=== PATIENT | female | born 1990 | race African-American/Black ===

== ENCOUNTER 2019-02-22 08:46 | Emergency (ER) | payer OTHER ==
[2019-02-22 09:09] VITALS: BMI 60.1
--- NOTE | 2019-02-22 09:49 | PDOC ---
Attending Attestation - Resident Resident Name: Roderick Greenfield - ED Attending Attestation I have performed the following: I have examined & evaluated the patient, The case was reviewed & discussed with the resident, I agree w/resident's findings & plan, Exceptions are as noted - HPI HPI: 02/22/19 12:03 Ms. Morris is a 28 yo F who presents to the ER with a complaint of a headache Pt reports that she is approximately 11 weeks - She reports that she awoke in her usual state of health 5 days ago That evening, she noted a headache She has a h/o headaches and this one feels similar to prior headaches The main difference is this headache has lasted for 5 days She typically takes Aleeve but has not been able to take that She took tylenol with no relief Headache is described as tension/squeezing, located through out the head, rated currently 7/10 Associated with photophobia Not associated with nausea She has had morning sickness but has been able to tolerate po No vaginal bleeding No abdominal pain She denies head trauma She denies neck pain - Physicial Exam PE: 02/22/19 12:07 GENERAL: The patient is in no acute distress. HEAD: Normal EYES: PERRLA, EOMI, sclera anicteric, conjunctiva clear. ENT: Ears normal, nares patent, oropharynx clear without exudates. Moist mucous membranes. NECK: Normal range of motion, supple LUNGS: Breath sounds equal, clear to auscultation bilaterally. No wheezes, and no crackles. HEART:Regular rate and rhythm, normal S1 and S2 without murmur, rub or gallop. ABDOMEN: Soft, mild lower abdominal tenderness EXTREMITIES: Normal range of motion, no edema. NEUROLOGICAL: Cranial nerves II through XII grossly intact. Normal speech. No focal neurological deficits. MUSCULOSKELETAL: Back non-tender to palpation, no CVA tenderness SKIN: Warm, Dry, normal turgor, no rashes or lesions noted. - Medical Decision Making DD: Tension headache, migraine headache, dehydration Doubt Intracranial mass, Dural sinus thrombosis as pt has no neurologic findings 02/22/19 12:03 Laboratory Tests 02/22/19 02/22/19 02/22/19 10:43 10:43 10:43 WBC 8.4 Hgb 12.6 Hct 36.3 Plt Count 226 BUN 9.1 Creatinine 0.6 Beta HCG, Quant 97648.1 Urine Blood Urine Nitrite Ur Leukocyte Esterase 02/22/19 10:52 WBC Hgb Hct Plt Count BUN Creatinine Beta HCG, Quant Urine Blood Trace-intact Urine Nitrite Negative Ur Leukocyte Esterase 3+ H 02/22/19 12:07 Pending US 02/22/19 13:08 U/S: single live IUP 16 weeks, 2 days, FHR: 160 bpm, nml amniotic fluid, anterior placenta Will re assess 02/22/19 14:10 Pt re assessed Pt headache completely resolved She feels well now Tolerating po Pt given OB for follow up Clinical impression: Headache, initial presentation 11 week , initial presentation Morning sickness, initial presentation
[2019-02-22] MEDS ORDERED: SODIUM CHLORIDE 1,000 ML IV STA (10:10)
[2019-02-22] MEDS ORDERED: ACETAMINOPHEN 1000 MG/100 ML VIAL (NON FORMULARY) IVPB ONE (10:44)
[2019-02-22] MEDS ORDERED: METOCLOPRAMIDE HCL INJECTION 10 MG/2 ML VIAL IVPUSH ONE (10:44)
--- NOTE | 2019-02-22 10:51 | PDOC ---
History of Present Illness - General Chief Complaint: Headache Stated Complaint: 11 WKS PREG / HEADACHE Time Seen by Provider: 02/22/19 09:38 History Source: Patient Exam Limitations: No Limitations - History of Present Illness Initial Comments: 28 yo F approximately 11 weeks GA (has not had her first OBGYN appointment ) presents to the emergency department with headache consistent with her previous migraines for 5 days. Per the patient, the headache is located in the left temporal region with radiation to the occipital region. Gradual in onset. Throbbing in nature. Denies the following: visual disturbance, FND, nausea, vomiting, chest pain, SOB, dizziness, lightheadedness, and AMS. She used tylenol yesterday and it did not emanuel her symptoms. Denies recent head trauma. Denies the following: fever, chills, abdominal pain, dysuria, hematuria, diarrhea, and hematochezia. Meds: Currently not on pre vitamins. Past History - Past Medical History Allergies/Adverse Reactions: Allergies Allergy/AdvReac Type Severity Reaction Status Date / Time No Known Allergies Allergy Verified 08/01/15 12:37 Home Medications: Ambulatory Orders Cephalexin Monohydrate [Keflex -] 500 mg PO BID #14 capsule 02/22/19 Pnv No.95/Ferrous Fum/Folic AC [ Vitamin Tablet] 1 each PO DAILY #30 tablet 02/22/19 COPD: No - Reproductive History Is Patient Now?: Yes (#): 1 Para: 0 - Immunization History Immunization Up to Date: No - Suicide/Smoking/Psychosocial Hx Smoking History: Never smoked Have you smoked in the past 12 months: No Information on smoking cessation initiated: No Hx Alcohol Use: No Drug/Substance Use Hx: No Substance Use Type: None Review of Systems - Review of Systems Able to Perform ROS?: Yes Is the patient limited Nepali proficient: No Constitutional: No: Chills, Diaphoresis, Fever, Weakness HEENTM: No: Eye Pain, Blurred Vision, Recent change in vision, Ear Pain, Nose Pain, Throat Pain, Mouth Pain Respiratory: No: Cough, Shortness of Breath, Hemoptysis Cardiac (ROS): No: Chest Pain, Lightheadedness, Palpitations, Syncope, Chest Tightness ABD/GI: No: Constipated, Diarrhea, Nausea, Rectal Bleeding, Vomiting, Tarry Stools : No: Burning, Dysuria, Hematuria, Incontinence Musculoskeletal: No: Back Pain, Joint Pain, Neck Pain Integumentary: No: Bruising, Erythema, Rash Neurological: Yes: Headache. No: Numbness, Tingling, Tremors Psychiatric: No: Change in Appetite Endocrine: No: Unexplained Weight Gain Hematologic/Lymphatic: No: Anemia *Physical Exam - Vital Signs Last Vital Signs Temp Pulse Resp BP Pulse Ox 98.6 F 78 18 100/62 100 02/22/19 08:57 02/22/19 08:57 02/22/19 08:57 02/22/19 08:57 02/22/19 08:57 - Physical Exam General Appearance: Yes: Nourished, Appropriately Dressed. No: Apparent Distress, Intoxicated HEENT: positive: EOMI, NABIL, Normal Voice, Symmetrical, Pharynx Normal, Hearing Grossly Normal. negative: Pale Conjunctivae, Scleral Icterus (R), Scleral Icterus (L), Muffled/Hoarse voice, Pharyngeal Erythema, Tonsillar Exudate, Tonsillar Erythema, Nasal Congestion, Rhinorrhea, Sinus Tenderness, Excessive drooling Neck: positive: Trachea midline, Supple. negative: Tender, Lymphadenopathy (R) , Lymphadenopathy (L) Respiratory/Chest: positive: Lungs Clear, Normal Breath Sounds. negative: Chest Tender, Respiratory Distress, Accessory Muscle Use, Crackles, Rales, Rhonchi, Stridor, Wheezing Cardiovascular: positive: Regular Rhythm, Regular Rate, S1, S2. negative: Systolic Murmur Gastrointestinal/Abdominal: positive: Normal Bowel Sounds, Tender (mild bilateral lower abdominal tenderness), Flat, Soft, Other (uterus palpable in the midline lower abdomen). negative: Distended Lymphatic: negative: Adenopathy Musculoskeletal: positive: Normal Inspection. negative: CVA Tenderness, Vertebral Tenderness Extremity: positive: Normal Capillary Refill, Normal Inspection, Normal Range of Motion. negative: Tender, Swelling, Calf Tenderness Integumentary: positive: Normal Color, Dry, Warm. negative: Swelling, Ecchymosis Neurologic: positive: sausage linker II-XII NML intact, Fully Oriented, Alert, Normal Mood/ Affect, Normal Response, Motor Strength 5/5 ED Treatment Course - LABORATORY CBC & Chemistry Diagram: 02/22/19 10:43 02/22/19 10:43 Medical Decision Making - Medical Decision Making 28 yo F approximately 11 weeks GA (has not had her first OBGYN appointment ) presents to the emergency department with headache consistent with her previous migraines for 5 days. Initial vitals; Initial Vital Signs Temp Pulse Resp BP Pulse Ox 98.6 F 78 18 100/62 100 02/22/19 08:57 02/22/19 08:57 02/22/19 08:57 02/22/19 08:57 02/22/19 08:57 Work up: ddx: headache 2/2 migraines. will assess status Laboratory Tests 02/22/19 02/22/19 02/22/19 10:43 10:43 10:43 WBC 8.4 RBC 3.94 Hgb 12.6 Hct 36.3 MCV 92.2 MCH 32.1 MCHC 34.9 RDW 14.4 Plt Count 226 MPV 7.9 Absolute Neuts (auto) 6.2 Neutrophils % 73.1 Lymphocytes % 18.5 D Monocytes % 6.8 Eosinophils % 1.0 D Basophils % 0.6 Nucleated RBC % 0 Sodium 140 Potassium 4.5 Chloride 106 Carbon Dioxide 27 Anion Gap 7 L BUN 9.1 Creatinine 0.6 Est GFR (CKD-EPI)AfAm 145.80 Est GFR (CKD-EPI)NonAf 125.80 Random Glucose 71 L Calcium 9.4 Total Bilirubin 0.2 AST 18 ALT 12 L Alkaline Phosphatase 55 Total Protein 6.7 Albumin 3.2 L Beta HCG, Quant 34663.1 Urine Color Urine Appearance Urine pH Ur Specific Rosalie Urine Protein Urine Glucose (UA) Urine Ketones Urine Blood Urine Nitrite Urine Bilirubin Urine Urobilinogen Ur Leukocyte Esterase Urine WBC (Auto) Urine RBC (Auto) Urine Casts (Auto) U Epithel Cells (Auto) Urine Crystals (Auto) Urine Bacteria (Auto) 02/22/19 10:52 WBC RBC Hgb Hct MCV MCH MCHC RDW Plt Count MPV Absolute Neuts (auto) Neutrophils % Lymphocytes % Monocytes % Eosinophils % Basophils % Nucleated RBC % Sodium Potassium Chloride Carbon Dioxide Anion Gap BUN Creatinine Est GFR (CKD-EPI)AfAm Est GFR (CKD-EPI)NonAf Random Glucose Calcium Total Bilirubin AST ALT Alkaline Phosphatase Total Protein Albumin Beta HCG, Quant Urine Color Yellow Urine Appearance Clear Urine pH 7.0 Ur Specific Rosalie 1.015 Urine Protein Negative Urine Glucose (UA) Negative Urine Ketones Negative Urine Blood Trace-intact Urine Nitrite Negative Urine Bilirubin Negative Urine Urobilinogen 0.2 Ur Leukocyte Esterase 3+ H Urine WBC (Auto) 47.8 Urine RBC (Auto) 0.7 Urine Casts (Auto) 5.63 U Epithel Cells (Auto) 1.8 Urine Crystals (Auto) Few Urine Bacteria (Auto) 271.0 UA positive for UTI. patient's TVUS was within normal limits showing approximately 16 week GA fetus SIUP with appropriate FHR. Will prescribe keflex , pre vitamins, and follow up with PMD. Patient's headache resolved with reglan, fluids, and tylenol. Dispo: Discharge *DC/Admit/Observation/Transfer Diagnosis at time of Disposition: UTI (urinary tract infection), Headache, - Discharge Dispostion Disposition: HOME Condition at time of disposition: Stable - Prescriptions Prescriptions: Cephalexin Monohydrate [Keflex -] 500 mg PO BID #14 capsule Pnv No.95/Ferrous Fum/Folic AC [ Vitamin Tablet] 1 each PO DAILY #30 tablet - Referrals Referrals: ON STAFF,NOT [Primary Care Provider] - [facility] [place] [Provider Group] Annalise Escalante MD [Staff Physician] - - Patient Instructions Printed Discharge Instructions: Diet, DI for Urinary Tract Infection (UTI), DI for -- Discomforts and Remedies Additional Instructions: You were seen in the emergency department for the evaluation of your headache. You were found to have a UTI. Please take the antibiotics as prescribed. Please follow up with an OBGYN physician within 1 week after discharge. Please take your medications as prescribed. Please return to the emergency department if you have worsening symptoms or new concerning symptoms. Thank you. - Post Discharge Activity
[2019-02-22 10:55] LABS: BASO % 0.6 % (0-2.0); HEMATOCRIT 36.3 % (32.4-45.2); HEMOGLOBIN 12.6 GM/dL (10.7-15.3); LYMPH % 18.5 % (8-40); MCH 32.1 pg (25.7-33.7); MCHC 34.9 g/dl (32.0-36.0); MEAN CELL VOLUME 92.2 fl (80-96); MEAN PLT VOLUME 7.9 fl (7.5-11.1); MONO % 6.8 % (3.8-10.2); NEUT % 73.1 % (42.8-82.8); PLATELET COUNT 226 K/MM3 (134-434); RBC 3.94 M/mm3 (3.60-5.2); RDW 14.4 % (11.6-15.6); WHITE BLOOD COUNT 8.4 K/mm3 (4.0-10.0)
[2019-02-22] MEDS ORDERED: METOCLOPRAMIDE HCL INJECTION 10 MG/2 ML VIAL ONE (10:55)
[2019-02-22] MEDS ORDERED: ACETAMINOPHEN INJECTION 100 ML IVPB ONE (10:55)
[2019-02-22 11:54] LABS: URINE APPEARANCE Clear; URINE BILIRUBIN Negative (NEGATIVE); URINE COLOR Yellow; URINE GLUCOSE (UA) Negative (NEGATIVE); URINE KETONE Negative (NEGATIVE); URINE LEUK ESTERASE 3+ (NEGATIVE); URINE NITRITE Negative (NEGATIVE); URINE PROTEIN Negative (NEGATIVE); URINE UROBILINOGEN 0.2 mg/dL (0.2-1.0)
[2019-02-22 11:56] LABS: ALBUMIN 3.2 g/dl (3.4-5.0); BILIRUBIN,TOTAL 0.2 mg/dL (0.2-1); BLOOD UREA NITROGEN 9.1 mg/dL (7-18); CALCIUM 9.4 mg/dL (8.5-10.1); CREATININE 0.6 mg/dL (0.55-1.3); POTASSIUM 4.5 mmol/L (3.5-5.1); TOT PROT 6.7 g/dl (6.4-8.2)
[2019-02-22 13:18] LABS: EPI CELLS 1.8 /HPF (0-5/HPF); HYALINE CASTS 5.63 /lpf (0-8); URINE RBC 0.7 /hpf (0-4); URINE WBC 47.8 /hpf (0-5)
[2019-02-22 13:19] LABS: URINE CRYSTALS FEW /hpf
[2019-02-22 14:01] VITALS: BP 113/70; PULSE 65; TEMP 98.1
== END 2019-02-22 14:00 | disposition home or self-care (01) ==
LOC: JER 08:46
PROC: 3E033NZ Introduction of Analgesics, Hypnotics, Sedatives into Peripheral Vein, Percutaneous Approach (ICD-10-PCS; principal; 2019-02-22)
PROC: 3E033GC Introduction of Other Therapeutic Substance into Peripheral Vein, Percutaneous Approach (ICD-10-PCS; 2019-02-22)
PROC: 3E0337Z Introduction of Electrolytic and Water Balance Substance into Peripheral Vein, Percutaneous Approach (ICD-10-PCS; 2019-02-22)
DX: O26.891 Other specified pregnancy related conditions, first trimester (principal); Z3A.11 11 weeks gestation of pregnancy; N39.0 Urinary tract infection, site not specified; R51 Headache
CPT/HCPCS: 36415; 76815-TC; 80053; 81003; 84702; 85025; 87086; 96361; 96374; 96375; 99283-25; J0131; J7030

== ENCOUNTER 2019-08-12 07:05 | Inpatient (IN) | payer OTHER ==
--- NOTE | 2019-08-12 07:39 | PN ---
Delivery - Delivery Vaginal Delivery: Spontaneous Type of Anesthesia: None Episiotomy/Laceration: None (Extramural delivery of a healthy baby boy. Retained placenta. Minimal bleeding.) Delivery, Single - Stages of Labor Date of Delivery: 08/12/19 - Condition of [employer] Present: No Gender: Male (? Baby is doing well.) Remarks - Remarks Remarks: Extramural delivery of a healthy baby boy. Retained placenta. No bleeding. Patient was evaluated. Intact placenta delivered with pushing, fundal massage and gentle cord traction. No complications. IV started; pitocin infusion. Patient examined. No lacerations. Uterus well contracted.
[2019-08-12] MEDS ORDERED: WITCH HAZEL 50% (TUCKS) 40 PAD/JAR PAD TP PRN (07:50)
[2019-08-12] MEDS ORDERED: BENZOCAINE 28 GM HEMORRHOIDAL OINTMENT TP PRN (07:50)
[2019-08-12] MEDS ORDERED: METHYLERGONOVINE MALEATE 0.2 MG/1 ML AMP IM PRN (07:50)
[2019-08-12] MEDS ORDERED: BENZOCAINE 20% 57 GM BOTTLE TP PRN (07:50)
[2019-08-12] MEDS ORDERED: BISACODYL 10 MG SUPP.RECT RC PRN (07:50)
[2019-08-12] MEDS: IBUPROFEN 600 MG TABLET (FP) PO PRN ×3 (07:55→19:34)
[2019-08-12] MEDS: ACETAMINOPHEN 325 MG TABLET (FP) PO PRN ×3 (07:55→19:33)
[2019-08-12 09:11] VITALS: BMI 31.8
[2019-08-12 09:23] LABS: BASO % 0.3 % (0-2.0); EOS % 0.1 % (0-4.5); HEMATOCRIT 34.5 % (32.4-45.2); HEMOGLOBIN 11.9 GM/dL (10.7-15.3); LYMPH % 7.6 % (8-40); MCH 32.4 pg (25.7-33.7); MCHC 34.6 g/dl (32.0-36.0); MEAN CELL VOLUME 93.5 fl (80-96); MEAN PLT VOLUME 9.2 fl (7.5-11.1); MONO % 4.6 % (3.8-10.2); NEUT % 87.4 % (42.8-82.8); PLATELET COUNT 232 K/MM3 (134-434); RBC 3.69 M/mm3 (3.60-5.2); RDW 12.9 % (11.6-15.6); WHITE BLOOD COUNT 14.5 K/mm3 (4.0-10.0)
[2019-08-12 09:37] LABS: INR 0.92 (0.83-1.09); PROTHROMBIN TIME (PATIENT) 10.9 SEC (9.7-13.0)
[2019-08-12 09:40] LABS: ACTIVATED PTT 26.7 SECONDS (25.2-36.5)
[2019-08-12 09:42] LABS: CREATININE 0.8 mg/dL (0.55-1.3); POTASSIUM 4.1 mmol/L (3.5-5.1)
[2019-08-12] MEDS: PRENATAL VITAMINS W/ FOLIC ACID TABLET (FP) PO SCH (10:00)
[2019-08-12 11:15] LABS: COCAINE, UR NEGATIVE ng/ml (CUTOFF=300); METHADONE, UR NEGATIVE ng/ml (CUTOFF=300); OPIATES, URI NEGATIVE ng/ml (CUTOFF=300); PHENCYCLIDINE,URINE NEGATIVE ng/ml (CUTOFF=25); URINE AMPHETAMINES NEGATIVE ng/ml (CUTOFF=500); URINE BARBITURATES NEGATIVE ng/ml (CUTOFF=200); URINE BENZODIAZEPINES NEGATIVE ng/ml (CUTOFF=200)
[2019-08-12 11:21] LABS: RPR REFLEX NONREACTIVE (NONREACTIVE)
[2019-08-13] MEDS: IBUPROFEN 600 MG TABLET (FP) PO PRN ×4 (01:56→21:29)
[2019-08-13] MEDS: ACETAMINOPHEN 325 MG TABLET (FP) PO PRN ×4 (01:57→21:30)
[2019-08-13 07:54] LABS: BASO % 0.2 % (0-2.0); EOS % 0.7 % (0-4.5); HEMATOCRIT 30.3 % (32.4-45.2); HEMOGLOBIN 10.4 GM/dL (10.7-15.3); LYMPH % 16.9 % (8-40); MCH 32.4 pg (25.7-33.7); MCHC 34.3 g/dl (32.0-36.0); MEAN CELL VOLUME 94.3 fl (80-96); MONO % 8.1 % (3.8-10.2); NEUT % 74.1 % (42.8-82.8); PLATELET COUNT 202 K/MM3 (134-434); RBC 3.22 M/mm3 (3.60-5.2); RDW 13.1 % (11.6-15.6); WHITE BLOOD COUNT 13.9 K/mm3 (4.0-10.0)
[2019-08-13] MEDS ORDERED: FLU VACC QS2019-20(6MOS UP)/PF 60 MCG/0.5 ML SYRINGE IM ONE (10:00)
[2019-08-13] MEDS ORDERED: DIPHTH,PERTUSS(ACELL),TET 0.5 ML DISP.SYRIN IM ONE (10:00)
[2019-08-13] MEDS: PRENATAL VITAMINS W/ FOLIC ACID TABLET (FP) PO SCH (10:38)
[2019-08-13] MEDS ORDERED: FLU VACCINE QUAD 60 MCG/0.5 ML (MDV 19-20) IM ONE (13:08)
[2019-08-13] MEDS ORDERED: SENNOSIDES/DOCUSATE COMBO (SENNA PLUS) TABLET (UD) PO PRN (22:00)
[2019-08-13] MEDS: OXYTOCIN 20 UNITS in 0.9% NS 20 UNIT/1,000 ML INFUS.BAG IV SCH ×2 (22:14→22:15)
[2019-08-14] MEDS: IBUPROFEN 600 MG TABLET (FP) PO PRN ×2 (05:30→14:37)
[2019-08-14] MEDS: ACETAMINOPHEN 325 MG TABLET (FP) PO PRN ×2 (05:30→14:35)
[2019-08-14] MEDS: PRENATAL VITAMINS W/ FOLIC ACID TABLET (FP) PO SCH (09:45)
--- NOTE | 2019-08-14 10:30 | DS ---
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: Vital Signs Temperature 97.9 F 08/14/19 08:57 Pulse Rate 75 08/14/19 08:57 Respiratory Rate 20 08/14/19 08:57 Blood Pressure 122/57 L 08/14/19 08:57 O2 Sat by Pulse Oximetry (%) 100 08/12/19 08:15 Constitutional: Yes: Well Nourished, Pallor, Other (c/o pain on groin area while walking, feels better today & pain is less today than yesterday.) Gastrointestinal: Yes: Other (voiding without difficulty) ....Post : Yes: Uterus firm, Uterus non-tender, Moderate lochia rubra ( perineum intact) Breast(s): Yes: WNL (soft , attempting BF) Extremities: No: Calf Tenderness Edema: LLE: 1+, RLE: 1+ Neurological: Yes: WNL, Alert, Oriented Psychiatric: Yes: WNL, Alert, Oriented Labs: CBC, BMP 08/13/19 07:32 08/12/19 08:45 Delivery - Delivery Vaginal Delivery: Spontaneous Type of Anesthesia: None Episiotomy/Laceration: None (Extramural delivery of a healthy baby boy. Retained placenta. 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 Baby is doing well.) Weight: 6 lb 4 oz Total Hours ROM (Hrs/Mins): 1HR 20MIN - Home Delivery on Admit Total Score: 9 - [place] Feeding Plan Initial Plan: Elected not to breastfeed exclusively throughout hospitalization Remarks - Remarks Remarks: primi gravda 40.2 weeks , home delivery by EMT placenta delivery & pp check up by Dr Victoria anemia counselled she will follow in 3 weeks with [facility] provider Discharge Summary Problems reviewed: Yes Reason For Visit: HOME DELIVERY Current Active Problems Normal spontaneous vaginal delivery (Acute) Procedures: Principal: placenta delivery only in the hosp by Dr Victoria Condition: Stable - Instructions Diet, Activity, Other Instructions: Discharge Instructions * Out of Bed * * Regular Diet * Lanette Care * Avoid sex for 6 weeks * rtc 3 weeks If you experience excessive bleeding or fever over 101 degrees, call doctor, the clinic or go to the Emergency Room. Referrals: Annalise Escalante MD [Staff Physician] - Disposition: HOME - Home Medications Comprehensive Discharge Medication List: Ambulatory Orders Pnv No.95/Ferrous Fum/Folic AC [ Vitamin Tablet] 1 each PO DAILY #30 tablet 02/22/19 Acetaminophen [Tylenol .Regular Strength -] 650 mg PO Q3H PRN tablet 08/14/19 Ferrous Sulfate [Feosol] 325 mg PO BID #60 tablet 08/14/19 Ibuprofen [Motrin -] 600 mg PO Q4H PRN #30 tablet 08/14/19 Vitamins (Sjr) - 1 tab PO DAILY #30 tablet 08/14/19
[2019-08-14 15:12] VITALS: BP 120/74; PULSE 87; TEMP 97.8
== END 2019-08-14 17:50 | disposition home or self-care (01) | DRG 560 ==
LOC: JLDR 07:05 → J3W 10:20
PROVIDERS: ADMIT Specialist; ATTEND Specialist
PROC: 10E0XZZ Delivery of Products of Conception, External Approach (ICD-10-PCS; principal; 2019-08-12)
DX: Z39.0 Encounter for care and examination of mother immediately after delivery (principal); O99.02 Anemia complicating childbirth; Z3A.40 40 weeks gestation of pregnancy; Z37.0 Single live birth
CPT/HCPCS: 36415; 59409; 80048; 80307; 85025; 85610; 85730; 86593; 86850; 86900; 86901; 87389; 90686; 90715; G0008

== ENCOUNTER 2021-10-02 01:24 | Emergency (ER) | payer OTHER ==
[2021-10-02 02:09] VITALS: BP 108/80; PULSE 81; TEMP 98.7; BMI 29.5
== END 2021-10-02 03:47 | disposition home or self-care (01) ==
LOC: JER 01:24
DX: N64.4 Mastodynia (principal)
CPT/HCPCS: 93005; 93010; 99283-25

== ENCOUNTER 2022-06-21 13:37 | Emergency (ER) | payer OTHER ==
[2022-06-21 13:55] VITALS: BP 115/67; PULSE 68; RESP 20; TEMP 98.6; BMI 26.4
[2022-06-21] MEDS ORDERED: ACETAMINOPHEN 500 MG TABLET (FP) PO ONE (15:33)
[2022-06-21] MEDS ORDERED: ACETAMINOPHEN 325 MG TABLET (FP) ONE (15:44)
[2022-06-21 16:44] LABS: BASO % 0.5 % (0-2.0); HEMATOCRIT 40.7 % (32.4-45.2); HEMOGLOBIN 13.8 GM/dL (10.7-15.3); LYMPH % 29.3 % (8-40); MCH 30.4 pg (25.7-33.7); MCHC 33.8 g/dl (32.0-36.0); MEAN CELL VOLUME 89.8 fl (80-96); MEAN PLT VOLUME 7.9 fl (7.5-11.1); MONO % 6.3 % (3.8-10.2); NEUT % 62.9 % (42.8-82.8); PLATELET COUNT 332 10^3/uL (134-434); RBC 4.53 M/mm3 (3.60-5.2); RDW 13.6 % (11.6-15.6); WHITE BLOOD COUNT 9.6 K/mm3 (4.0-10.0)
[2022-06-21 17:22] LABS: BLOOD UREA NITROGEN 9.7 mg/dL (7-18); CALCIUM 9.3 mg/dL (8.5-10.1)
[2022-06-21 17:25] LABS: CREATININE 0.6 mg/dL (0.55-1.3)
[2022-06-21 18:12] LABS: EPI CELLS 20 /uL (0-25.1); HYALINE CASTS 3 /uL (0-3.1); URINE APPEARANCE CLEAR; URINE BACTERIA 357 /uL (0-1359); URINE BILIRUBIN NEGATIVE (NEGATIVE); URINE COLOR YELLOW; URINE GLUCOSE (UA) NEGATIVE (NEGATIVE); URINE KETONE TRACE (NEGATIVE); URINE LEUK ESTERASE 2+ (NEGATIVE); URINE NITRITE NEGATIVE (NEGATIVE); URINE PROTEIN NEGATIVE (NEGATIVE); URINE RBC 16 /uL (0-23.9); URINE WBC 289 /uL (0-25.8)
== END 2022-06-21 20:15 | disposition home or self-care (01) ==
LOC: JER 13:37
DX: O23.41 Unspecified infection of urinary tract in pregnancy, first trimester (principal); O26.851 Spotting complicating pregnancy, first trimester; Z3A.08 8 weeks gestation of pregnancy
CPT/HCPCS: 36415; 76801-TC; 80048; 81003; 84702; 84703; 85025; 86850; 86900; 86901; 87086; 99284-25